=== PATIENT | male | born 1975 | race African-American/Black ===

== ENCOUNTER 2016-10-30 16:23 | Emergency (ER) | payer OTHER ==
[2016-10-30 16:44] VITALS: BP 121/80
[2016-10-30] MEDS ORDERED: MOTRIN PO ONE (20:03)
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
--- NOTE | 2016-10-30 20:43 | XRay Report ---
FINAL REPORT EXAM: XR CHEST ROUTINE 2V HISTORY: chestpain TECHNIQUE: Two view chest PA and lateral PRIORS: None. FINDINGS: Cardiac and mediastinal contours are unremarkable. No focal pulmonary infiltrate is identified. No pleural fluid collection seen. Pulmonary vasculature is unremarkable. IMPRESSION: Negative two-view chest
[2016-10-30 21:13] LABS: Anion Gap 17 mmol/L; BUN/Creatinine Ratio 14.44; Blood Urea Nitrogen 13 mg/dL (9-20); Calcium 8.7 mg/dL (8.4-10.2); Carbon Dioxide 25 mmol/L (22-30); Chloride 100.9 mmol/L (98-107); Glucose 90 mg/dL (75-100); Sodium 139 mmol/L (137-145)
[2016-10-30 21:20] LABS: Hematocrit 42.2 % (35.5-45.6); Mean Corpuscular HGB Conc 33 % (32-34); Mean Corpuscular Hemoglobin 28 pg (28-32); Mean Corpuscular Volume 84 fl (84-94); Platelet Count 173 K/mm3 (140-440); Red Blood Count 5.01 M/mm3 (3.65-5.03); Red Cell Distribution Width 13.2 % (13.2-15.2); White Blood Count 7.3 K/mm3 (4.5-11.0)
[2016-10-30 22:44] LABS: Anisocytosis 1+; Blastocytes % (Manual) 0 %; Diff Status Complete; Elliptocytes 1+; Poikilocytosis 1+
== END 2016-10-30 21:40 | disposition home or self-care (01) ==
LOC: ED 16:23
DX: M94.0 Chondrocostal junction syndrome [Tietze] (principal); R07.89 Other chest pain; G89.29 Other chronic pain
CPT/HCPCS: 36415; 71020; 80048; 84484; 85007; 85025; 93005; 93010